=== PATIENT | female | born 1970 | race Caucasian/White ===

== ENCOUNTER 2024-03-29 07:25 | Emergency (ER) | payer MEDICAID ==
[~2024-03-29] VITALS: Ht 160 cm; Wt 63.0 kg
[2024-03-29 07:28] VITALS: BP 132/89; PULSE 105; RESP 18; O2SAT 99
[2024-03-29 08:26] VITALS: TEMP 97.9
[2024-03-29] MEDS: ACETAMINOPHEN 325MG TABLET PO ONE (08:26)
[2024-03-29] MEDS ORDERED: LIDO700A15 TP (09:02)
[2024-03-29] MEDS ORDERED: NAPR220C61 MT (09:02)
== END 2024-03-29 09:22 | disposition home or self-care (01) ==
LOC: ER 07:25
DX: S20.219A Contusion of unspecified front wall of thorax, initial encounter (principal); S09.90XA Unspecified injury of head, initial encounter; G89.11 Acute pain due to trauma; V49.9XXA Car occupant (driver) (passenger) injured in unspecified traffic accident, initial encounter; Y93.89 Activity, other specified; Y92.410 Unspecified street and highway as the place of occurrence of the external cause; Y99.8 Other external cause status
CPT/HCPCS: 71045; 70450; 99284; Z7610 ×2